=== PATIENT | female | born 1950 | race Caucasian/White ===

== ENCOUNTER → 2017-06-03 | Outpatient (CLI) | payer MEDICARE ==
[~2017-06-03] MED LIST: CELE20TA PO; PRAV20TA2 PO; PROP1TAB29 PO; ZOMI5TAB12
--- NOTE | 2017-06-03 11:58 | REPMRS ---
Patient History The patient states she has not had a clinical breast exam in over a year. Patient is postmenopausal and is nulliparous. Family history of breast cancer in mother at age 87. Digital Woman Screen Mammo: June 03, 2017 - Exam #: [id number] Bilateral CC and MLO view(s) were taken. Technologist: Pily Herrera, Technologist Prior study comparison: June 17, 2016, digital woman screen mammo performed at [facility]. April 23, 2015, digital woman screen mammo performed at [facility] to [facility]. FINDINGS: There are scattered fibroglandular densities. There has been no change in the appearance of the mammogram from the prior studies. There is a mild amount of residual fibroglandular tissue which is fairly symmetric. There is no interval development of dominant mass, architectural distortion, or clustered microcalcification suggestive of malignancy. ASSESSMENT: BI-RADS/ACR category 1 mammogram. Negative. Recommendation Routine screening mammogram in 1 year (for women over age 40). This mammogram was interpreted with the aid of an FDA-approved computer-aided dectection system. Electronically Signed By: Douglas Gillis MD 06/03/17 [id number]
== END ==
LOC: M WHC 10:07
PROVIDERS: ATTEND Nurse Practitioner Adult Health
DX: Z12.31 Encounter for screening mammogram for malignant neoplasm of breast (principal)

== ENCOUNTER 2018-02-18 06:47 | Day surgery (SDC) | payer MEDICARE ==
[2018-02-18] MEDS ORDERED: NS 1,000 ML IV (07:00)
[2018-02-18] MEDS ORDERED: LIDOCAINE 2% INJ 100 MG/5 ML SDV (FOR ANES.) As Ordered (07:06)
[2018-02-18] MEDS ORDERED: PROPOFOL 200 MG/20 ML VIAL As Ordered (07:06)
== END 2018-02-18 09:01 | disposition home or self-care (01) ==
LOC: M OPP 06:47
DX: Z12.11 Encounter for screening for malignant neoplasm of colon (principal); Z86.010 Personal history of colon polyps; K57.30 Diverticulosis of large intestine without perforation or abscess without bleeding; I10 Essential (primary) hypertension; K21.9 Gastro-esophageal reflux disease without esophagitis; F32.9 Major depressive disorder, single episode, unspecified; G43.909 Migraine, unspecified, not intractable, without status migrainosus; Z78.0 Asymptomatic menopausal state; Z92.3 Personal history of irradiation; Z87.2 Personal history of diseases of the skin and subcutaneous tissue; R06.2 Wheezing; Z88.8 Allergy status to other drugs, medicaments and biological substances; Z88.0 Allergy status to penicillin; Z79.899 Other long term (current) drug therapy
CPT/HCPCS: G0105

== ENCOUNTER 2018-04-20 10:26 | Day surgery (SDC) | payer MEDICARE ==
[2018-04-20] MEDS ORDERED: fentaNYL 100 MCG/2 ML INJECTION (J3010) As Ordered (11:31)
[2018-04-20] MEDS ORDERED: dexameTHASONE 4 MG/ML 1ML VIAL (J1100) As Ordered ×2 (11:31→13:51)
[2018-04-20] MEDS ORDERED: MIDAZOLAM INJ 2 MG/2 ML VIAL (J2250) As Ordered (11:31)
[2018-04-20] MEDS ORDERED: PROPOFOL 200 MG/20 ML VIAL As Ordered (11:31)
[2018-04-20] MEDS ORDERED: ROCURONIUM BROMIDE 50 MG/5 ML VIAL As Ordered (11:31)
[2018-04-20] MEDS ORDERED: LIDOCAINE 2% INJ 100 MG/5 ML SDV (FOR ANES.) As Ordered (11:31)
[2018-04-20] MEDS ORDERED: LevoFLOXacin(LEVAQUIN)500 MG/100 ML BAG (J1956) As Ordered (12:21)
[2018-04-20] MEDS: LevoFLOXacin IV 500 MG in APPROPRIATE DILUENT 1 EA IV (13:10)
[2018-04-20] MEDS ORDERED: ePHEDrine SULFATE 25 MG/5 ML(5MG/ML) SYRINGE As Ordered (13:57)
[2018-04-20] MEDS ORDERED: SUGAMMADEX SODIUM 500 MG/5 ML VIAL (BRIDION) As Ordered (14:08)
[2018-04-20] MEDS: BUPIVACAINE/EPIN 0.25% 30 ML VIAL As Ordered (14:15)
[2018-04-20] MEDS ORDERED: PERCOCET 5MG/325MG TAB PO (15:00)
[2018-04-20] MEDS ORDERED: LR 1,000 ML IV ×2 (15:00)
[2018-04-20] MEDS ORDERED: ONDANSETRON 4MG/2ML VIAL (J2405) IV ×2 (15:00)
[2018-04-20] MEDS ORDERED: MORPHINE 10 MG/ML 1ML VIAL (J2270) IV (15:00)
[2018-04-20] MEDS ORDERED: fentaNYL 100 MCG/2 ML INJECTION (J3010) IV (15:00)
[2018-04-20] MEDS ORDERED: MORPHINE 4 MG/ML 1ML VIAL/SYRINGE (J2270) IV (15:00)
[2018-04-20] MEDS ORDERED: NORCO, ANEXSIA 5/325MG TABLET (HYDROcodone/ACETAMINOPHEN) PO (15:00)
[2018-04-20] MEDS ORDERED: PHENYLephrine HCL 500 MCG/5 ML (100MCG/ML) SYRINGE (J2370) As Ordered (15:38)
[2018-04-21] MEDS ORDERED: LIDOCAINE 2% INJ 100 MG/5 ML SDV (FOR ANES.) As Ordered (08:25)
[2018-04-21] MEDS ORDERED: ONDANSETRON 4MG/2ML VIAL (J2405) As Ordered (08:25)
[2018-04-21] MEDS ORDERED: KETOROLAC 60 MG/2 ML VIAL (J1885) As Ordered (08:25)
[2018-04-21] MEDS ORDERED: MIDAZOLAM INJ 2 MG/2 ML VIAL (J2250) As Ordered (08:25)
[2018-04-21] MEDS ORDERED: ROCURONIUM BROMIDE 50 MG/5 ML VIAL As Ordered (08:25)
[2018-04-21] MEDS ORDERED: PROPOFOL 200 MG/20 ML VIAL As Ordered (08:25)
[2018-04-21] MEDS ORDERED: dexameTHASONE 4 MG/ML 1ML VIAL (J1100) As Ordered (08:25)
[2018-04-21] MEDS ORDERED: fentaNYL 250 MCG/5 ML INJECTION (J3010) As Ordered (08:25)
== END 2018-04-20 16:14 | disposition home or self-care (01) ==
LOC: M SDC 10:26
DX: K36 Other appendicitis (principal); I10 Essential (primary) hypertension; K21.9 Gastro-esophageal reflux disease without esophagitis; M12.9 Arthropathy, unspecified; F32.9 Major depressive disorder, single episode, unspecified; G43.909 Migraine, unspecified, not intractable, without status migrainosus; T88.59XD Other complications of anesthesia, subsequent encounter; E66.9 Obesity, unspecified; Z68.37 Body mass index [BMI] 37.0-37.9, adult; Z88.0 Allergy status to penicillin; Z88.4 Allergy status to anesthetic agent; Z79.899 Other long term (current) drug therapy; Z87.81 Personal history of (healed) traumatic fracture; Z92.3 Personal history of irradiation; Z78.0 Asymptomatic menopausal state
CPT/HCPCS: 44970

== ENCOUNTER → 2018-07-28 | Outpatient (CLI) | payer MEDICARE ==
[~2018-07-28] MED LIST changes: +CYCL10TA PO; +HYDR12CA PO; +IPRA6SP; +NEXI20CA PO; -PROP1TAB29 PO; +PROP20TA72 PO; +SYMB16INH INH
--- NOTE | 2018-07-28 13:33 | REPMRS ---
Patient History The patient states she had a clinical breast exam in 11/04 Patient is postmenopausal and is nulliparous. Family history of breast cancer at age 87 in mother. Digital Woman Screen Mammo: July 28, 2018 - Exam #: [id number] Bilateral CC and MLO view(s) were taken. Technologist: Kamila Carter, Technologist Prior study comparison: June 03, 2017, digital woman screen mammo performed at [facility]. June 17, 2016, digital woman screen mammo performed at [facility]. April 23, 2015, digital woman screen mammo performed at [facility]. FINDINGS: There are scattered fibroglandular densities. There is a grouping of coarse stable calcifications in the medial aspect of the left breast on unchanged. These are adjacent to a small nodular opacity which is also unchanged from multiple prior studies. There are normal appearing lymph nodes bilaterally. There has been no change in the appearance of the mammogram from the prior studies. There is a mild amount of scattered fibroglandular density which is fairly symmetric. There is no interval development of dominant mass, architectural distortion, or clustered microcalcification suggestive of malignancy. 3-D tomosynthesis shows no additional findings. Assessment: BI-RADS/ACR category 2 mammogram. Benign finding(s). Recommendation Routine screening mammogram of both breasts in 1 year (for women over age 40). This patient's Lifetime Breast Cancer RIsk is estimated at 16.2 %. This mammogram was interpreted with the aid of an FDA-approved computer-aided dectection system. Electronically Signed By: Av Vasquez MD 07/28/18 0079
== END ==
LOC: M WHC 10:55
PROVIDERS: ATTEND Nurse Practitioner Adult Health
DX: Z12.31 Encounter for screening mammogram for malignant neoplasm of breast (principal)

== ENCOUNTER → 2018-09-02 | Outpatient (CLI) | payer MEDICARE ==
[~2018-09-02] MED LIST changes: +METHACHOLINE KIT (J7674) INH ONE
--- NOTE | 2018-09-02 14:01 | PFTRPT ---
Height: 63.00 Inches Weight: 210.00 Lbs BSA: 1.97 Diagnosis: R06.00 DATE OF PROCEDURE: 09/02/2018 ORDERED BY: DESTINEE Galeano Spirometry: Pre and post bronchodilator study of excellent technical quality. Forced vital capacity reduced. FEV1 in proportion. Obstructive index is, therefore, normal. Flow Volume Loop: Expiratory limb of the flow volume loop does suggest some flow rate limitation. No significant bronchodilator response is identified. IMPRESSION: Suspect some degree of obstructive impairment with air trapping but no bronchodilator response. Please correlate clinically. MTDD
== END ==
LOC: M CARPUL 09:29
PROVIDERS: ATTEND Physician Assistant
DX: R06.00 Dyspnea, unspecified (principal)

== ENCOUNTER 2018-10-18 01:20 | Inpatient (IN) | payer MEDICARE ==
[~2018-10-18] VITALS: Ht 167.6 cm; Wt 99.8 kg
[~2018-10-18 01:20] MED LIST changes: -METHACHOLINE KIT (J7674) INH ONE
--- NOTE | 2018-10-18 01:44 | REPVR ---
EXAM: CT Head Without Contrast EXAM DATE/TIME: 10/18/2018 1:38 AM CLINICAL HISTORY: 68 years old, female; Pain; Headache; Additional info: [place]/ams TECHNIQUE: Imaging protocol: Axial computed tomography images of the head/brain without contrast. STROKE PROTOCOL was implemented. Radiation optimization: All CT scans at this facility use at least one of these dose optimization techniques: automated exposure control; mA and/or kV adjustment per patient size (includes targeted exams where dose is matched to clinical indication); or iterative reconstruction. COMPARISON: No relevant prior studies available. FINDINGS: Brain: Mild prominence of bilateral frontal extra-axial space likely volume loss versus adenoma. No hemorrhage. No significant white matter disease. No edema. Ventricles: Asymmetry of the ventricles, right larger than left, normal variant. No ventriculomegaly. Bones/joints: Unremarkable. No acute fracture. Sinuses: Mild mucosal thickening of right maxillary sinus and moderate mucosal thickening of the left maxillary sinus. Mild mucosal thickening of bilateral maxillary sinuses. Small mucous retention cyst in left sphenoid sinus.. No acute sinusitis. Mastoid air cells: Visualized mastoid air cells are unremarkable. No mastoid effusion. Soft tissues: Unremarkable. IMPRESSION: No acute intracranial abnormality. Mild volume loss. Moderate sinus disease. ASSESSMENT: ASPECTS ([place] Stroke Program Early CT Score) is 10. Electronically signed by: Qiana Hernández On 10/18/2018 01:43:21 AM
[2018-10-18] MEDS ORDERED: LIDOCAINE 2% 5ML JELLY UROJET TOP ONE (02:00)
[2018-10-18 02:09] LABS: ABG BASE EXCESS 0.1 (-2.0-2.0); ABG O2 SATURATION 96.6 % (95.0-99.0); ABG PARTIAL PRESSURE CO2 28.3 mmHg (35.0-45.0); ABG PARTIAL PRESSURE O2 79.5 mmHg (75.0-100.0); ABG STANDARD HCO3 24.5 MEQ/L (22.0-26.0); ABG TOTAL CO2 22.8 MEQ/L (23.0-31.0); ABG pH (ARTERIAL) 7.508 UNITS (7.350-7.450)
[2018-10-18] MEDS ORDERED: PROPOFOL 200 MG/20 ML VIAL As Ordered ONE (02:29)
[2018-10-18 02:35] LABS: BASO # 0.1 10^3/uL (0.0-0.2); BASO % 0.5 % (0.0-1.0); EOS # 0.1 10^3/uL (0.0-0.50); EOS % 0.8 % (0.0-3.0); HEMATOCRIT 36.8 % (36.0-47.0); HEMOGLOBIN 12.6 g/dl (12.0-15.5); LYMPH # 1.8 10^3/uL (1.5-4.5); LYMPH % 12.4 % (24.0-44.0); MEAN CORPUSCULAR HEMOGLOBIN 29.9 pg (27.0-33.0); MEAN CORPUSCULAR HGB CONC 34.2 g/dl (32.0-36.5); MEAN CORPUSCULAR VOLUME 87.4 fl (80.0-96.0); MONO # 0.7 10^3/uL (0.0-0.8); MONO % 5.2 % (0.0-5.0); NEUTROPHILS # 11.4 10^3/uL (1.8-7.7); NEUTROPHILS % 80.7 % (36.0-66.0); PLATELET COUNT, AUTOMATED 375 10^3/uL (150-450); RED BLOOD COUNT 4.21 10^6/uL (4.00-5.40); WHITE BLOOD COUNT 14.2 10^3/uL (4.0-10.0)
[2018-10-18 02:54] LABS: AMPHETAMINES LEVEL URINE NEGATIVE (NEGATIVE); BARBITURATES URINE NEGATIVE (NEGATIVE); BENZODIAZEPINES URINE NEGATIVE (NEGATIVE); CANNABINOIDS URINE NEGATIVE (NEGATIVE); COCAINE METABOLITE URINE NEGATIVE (NEGATIVE); METHADONE URINE NEGATIVE (NEGATIVE); OPIATES URINE NEGATIVE (NEGATIVE); PHENCYCLIDINE URINE NEGATIVE (NEGATIVE)
[2018-10-18 02:55] LABS: APPEARANCE, URINE HAZY (CLEAR); BACTERIA, URINE AUTO NEGATIVE (NEGATIVE); BILIRUBIN, URINE AUTO NEGATIVE (NEGATIVE); BLOOD, URINE BLOOD NEGATIVE (NEGATIVE); COLOR, URINE YELLOW (YELLOW); GLUCOSE, URINE (UA) AUTO NEGATIVE (NEGATIVE); KETONE, URINE AUTO TRACE mg/dL (NEGATIVE); LEUKOCYTE ESTERASE, URINE AUTO NEGATIVE (NEGATIVE); MUCUS, URINE SMALL (NEGATIVE); NITRITE, URINE AUTO NEGATIVE (NEGATIVE); PROTEIN, URINE AUTO NEGATIVE (NEGATIVE); RBC, URINE AUTO 2 /HPF (0-3); SPECIFIC GRAVITY URINE AUTO 1.019 (1.002-1.035); SQUAMOUS EPITHELIAL CELL UR AU 0 /HPF (0-6); UROBILINOGEN, URINE AUTO 0.2 mg/dL (0.0-2.0); WBC, URINE AUTO 1 /HPF (0-3)
[2018-10-18] MEDS ORDERED: PROPOFOL 200 MG/20 ML VIAL IV ONE (03:00)
[2018-10-18 03:07] LABS: APPEARANCE, CSF HAZY (CLEAR); COLOR, CSF PINK (COLORLESS)
[2018-10-18 03:08] LABS: APPEARANCE, CSF CLEAR (CLEAR); COLOR, CSF COLORLESS (COLORLESS); CSF TUBE# CELL CNT TUBE 1
[2018-10-18 03:09] LABS: CSF TUBE# CELL CNT TUBE 4
[2018-10-18] MEDS ORDERED: MORPHINE 2 MG/ML 1ML SYRINGE (J2270) IV ONE (03:15)
[2018-10-18] MEDS ORDERED: NS 1,000 ML IV ONE (03:15)
[2018-10-18] MEDS ORDERED: cefTRIAXone SOD 2 GM in D5W MINI-BAG PLUS 50 ML IV ONE (03:15)
[2018-10-18] MEDS ORDERED: VANCOMYCIN HCL 1,000 MG, VIAL MATE ADAPTER 1 EACH in D5W 250 ML IV ONE (03:15)
[2018-10-18] MEDS ORDERED: ACYCLOVIR 1,000 MG in D5W 250 ML IV ONE (03:15)
[2018-10-18 03:19] LABS: ACETAMINOPHEN LEVEL < 2.0 UG/ML (10.0-30.0); ALBUMIN 4.1 GM/DL (3.2-5.2); ALT/SGPT 45 U/L (12-78); BILIRUBIN,DIRECT 0.2 MG/DL (0.0-0.2); BILIRUBIN,TOTAL 0.9 MG/DL (0.2-1.0); BLOOD UREA NITROGEN 17 MG/DL (7-18); CALCIUM LEVEL 9.4 MG/DL (8.8-10.2); CARBON DIOXIDE LEVEL 23 MEQ/L (21-32); CHLORIDE LEVEL 108 MEQ/L (98-107); CPK CREATINE PHOSPHOKINASE 70 U/L (26-192); ETHYL ALCOHOL (ETHANOL) < 0.003 % (0.000-0.010); FREE THYROXINE INDEX 3.6 % (1.3-4.8); GLOMERULAR FILTRATION RATE > 60.0 (>45); GLUCOSE, FASTING 131 MG/DL (70-100); POTASSIUM SERUM 3.8 MEQ/L (3.5-5.1); SALICYLATE LEVEL < 1.7 MG/DL (5.0-30.0); SODIUM LEVEL 142 MEQ/L (136-145); T UPTAKE 34 % (30-39); THYROXINE (T4) 10.6 UG/DL (4.5-12.0); TOTAL PROTEIN 7.4 GM/DL (6.4-8.2); TROPONIN I < 0.02 NG/ML (< 0.10)
[2018-10-18 03:28] LABS: CSF TUBE# GLU TUBE 2; CSF TUBE# TP TUBE 4; GLUCOSE CSF 58 MG/DL (40-75); TOTAL PROTEIN,CSF 35 MG/DL (15-45)
[2018-10-18] MEDS ORDERED: PANT40TA3 PO (03:32)
[2018-10-18] MEDS ORDERED: PATIENT COMMENTS (03:34)
[2018-10-18] MEDS: NS 1,000 ML IV SCH ×4 (03:41→23:30)
[2018-10-18] MEDS ORDERED: SYMB80INH INH (03:43)
[2018-10-18] MEDS ORDERED: IPRATROPIUM 0.5MG/ALBUTEROL 2.5MG INH SOL UD 3ML (DUONEB)(J7620) NEB PRN (03:45)
[2018-10-18] MEDS ORDERED: dexameTHASONE 20 MG/5 ML VIAL (J1100) IV ONE (03:45)
[2018-10-18 03:56] LABS: C REACTIVE PROTEIN QUANTITATIV < 0.30 MG/DL (0.00-0.30)
--- NOTE | 2018-10-18 05:25 | PHACANCOPD ---
PHARMACY VANCOMYCIN DOSING Pt Demographics Demographics Patient Age:68 , Weight:97.900 , Gender: female Adjusted Body Weight Date: 10/18/18, Adjusted Body Weight: Kg Events Past 24 Hours Events Past 24 Hours: NO: Dialysis, Diuretic Therapy, Change in CrCl, Fever, Elevation in WBC, Pending Diagnostics, Pending Procedures, Other Vancomycin Vancomycin Target Ranges: 15-20 mcg/ml Vancomycin Load Y/N: Yes Load Dose Date Time Vancomycin Load Dose: 1000mg - 1000mg Date: 10/18 Time: 329 - 899 Vancomycin Dose Date: 10/18/18. Current Vancomycin Dose: [1000mg q8h] Intermittent Dosing?: No Labs Labs Item Value Date Time White Blood Count 14.2 10^3/uL H 10/18/18225 Glomerular Filtration Rate > 60.0 10/18/18225 Creatinine 0.80 MG/DL 10/18/18225 Blood Urea Nitrogen 17 MG/DL 10/18/18 0226 Vital Signs Label Value Date Time Patient Temperature 98.2 degrees F 10/18/18 0155 Temperature Source Rectal 10/18/18 0155 Micro Microbiology 10/18/18 Blood Culture, Received Pending 10/18/18 Gram Stain - Preliminary, Resulted 10/18/18 CSF Culture, Resulted Pending 10/18/18 - Final, Resulted 10/18/18 Urine Culture, Received Pending Creatinine Clearance Date:10/18/18. Creatinine Clearance: [68]. Pending Labs Trough 04-01@1600 Assessment and Plan Maintaining Current Dose?: Yes Reason for dose change: No Dose Change Pharmacist Note Pharmacist Note Date: 10/18/18. Pharmacist note:Will monitor and make adjustments as needed. ISMAEL GARCES PHARMACY Oct 18, 2018 05:25
[2018-10-18] MEDS: HEPARIN SOD (PORCINE) 5000 UNITS/ML VIAL SC SCH ×3 (05:45→21:05)
[2018-10-18 05:48] VITALS: BP 145/80
[2018-10-18] MEDS ORDERED: MEROPENEM INJ 1 GM in APPROPRIATE DILUENT 1 EA IV SCH (06:00)
[2018-10-18] MEDS: SYMBICORT 80/4.5MCG INHALER 6GM INH SCH ×2 (07:40→20:17)
--- NOTE | 2018-10-18 08:03 | REP ---
Portable chest x-ray: Single view. History: Admission. Comparison chest x-ray: December 27, 2017. Findings: EKG monitoring electrodes overlie the chest. Lungs are well inflated and clear. Pleural angles are sharp. Cardiomediastinal silhouette and bony thorax are unremarkable. Impression: No active disease. Electronically Signed by Fahad Vasquez MD 10/18/2018 07:54 A
[2018-10-18 08:07] VITALS: BP 125/69
[2018-10-18] MEDS: PANTOPRAZOLE 40MG TAB (PROTONIX) PO SCH (08:25)
--- NOTE | 2018-10-18 08:43 | HPE ---
DATE OF ADMISSION: 10/18/2018 CHIEF COMPLAINT: Headache and altered mental status. HISTORY OF PRESENT ILLNESS: The patient is a 68-year-old female with significant past medical history of depression, anxiety, GERD, hypertension, asthma, COPD. She presented to the emergency room after her called 911. Throughout the course of the day yesterday the patient complained of a headache which progressively worsened and subsequently became altered towards the end of the day. The patient does not offer any history. She appears to have a brokers aphasia. The words she states is nonsensical even writing she is unable to write appropriately. states that she had no acute complaints but the history is limited just because of the patient's inability to have a cohesive conservation. PAST MEDICAL HISTORY: See history of present illness. PAST SURGICAL HISTORY: None. ALLERGIES: Penicillin, reaction is unknown. HOME MEDICATIONS: Hydrochlorothiazide, pantoprazole, pravastatin, propranolol, Symbicort, Celexa, Zomig. SOCIAL HISTORY: Denies tobacco, alcohol, or illicit drug use. FAMILY HISTORY: Noncontributory. REVIEW OF SYSTEMS: Unable to complete because of underlying mentation. VITALS ON ADMISSION: Temperature 98.2, pulse 77, respirations 22, blood pressure 131/61, sating at 100% on room air. PHYSICAL EXAM: GENERAL: She is well nourished, in no apparent distress. Head is normocephalic atraumatic. Eyes, pupils equal, round and reactive to light. Neck supple with no jugular venous pulse. Lungs clear to auscultation on the anterior chest. Cardiovascular regular and rhythm. Normal S1, S2. No murmurs, gallops or rubs. Abdomen soft and positive bowel sounds. Extremities no edema. Neurological, she is alert. She has no focal deficits. Moves all four extremities. Sensation is intact. However she is not oriented and appears to have brokers aphasia. LABS AND IMAGING DONE IN THE ER: White count 14, hemoglobin and hematocrit 12 and 36, platelets 375, blood gas 7.5, 28 79 22 96, Chemistry shows a BUN and creatinine of 17 over 0.8, Lactate 2.6, ammonia unremarkable, liver function test unremarkable. TSH within normal limits. CRP is pending. CT head no acute intracranial abnormality. X-ray of the chest no acute pathology. UA is unremarkable. U-tox is unremarkable. Tylenol and blood alcohol levels unremarkable. CSF first model shows 23 WBC predominately poly, 5 red blood cell. Model #4 shows 7 WBC's, less than 2 red blood cells. She has some glucose still pending. CULTURES: Pending. Gram stain is pending. ASSESSMENT AND PLAN: 1. Metabolic encephalomyopathy unclear, possibly meningitis even though I believe versus rule out CVA versus substance induced versus underlying psychiatric disorder which is very less likely. We will treat with Vanco and Meropenem, acyclovir. We will aggressively hydrate while on Acyclovir. We will give Decadron 10 mg IV once. We will keep on droplet precautions for 24 hours and after 24 hours droplet precaution can be discontinued. Neuro checks, MRI, echo, ultrasound, carotid Doppler, stroke workup. We will keep the patient on tele. Please obtain infectious consultation in the morning. The rest of her chronic medical conditions: 2. Hypertension. Continue hydrochlorothiazide. 3. Hyperlipidemia. Continue Pravastatin. 4. GERD. Continue Pantoprazole, propranolol. 5. COPD/asthma. Continue DuoNebs. 6. Supportive DVT prophylaxis. Heparin subcu. 7. GI prophylaxis. The patient is already on PPI. DIET: Nothing by mouth for now. We will do swallow evaluation.
[2018-10-18] MEDS: ACYCLOVIR 1,000 MG in D5W 250 ML IV SCH ×2 (08:54→15:49)
[2018-10-18] MEDS ORDERED: PROPRANOLOL 20 MG TAB PO SCH (09:00)
[2018-10-18] MEDS ORDERED: PANTOPRAZOLE 40MG TAB (PROTONIX) PO SCH (09:00)
[2018-10-18] MEDS ORDERED: hydroCHLOROthiazide 12.5 MG CAPSULE PO SCH (09:00)
[2018-10-18] MEDS ORDERED: VANCOMYCIN HCL 1,000 MG, VIAL MATE ADAPTER 1 EACH in D5W 250 ML IV SCH (09:00)
[2018-10-18] MEDS: ACETAMINOPHEN 500 MG TAB PO PRN (09:48)
[2018-10-18] MEDS ORDERED: ASPIRIN 81 MG CHEW TABLET PO ONE (11:30)
--- NOTE | 2018-10-18 11:51 | REP ---
MR BRAIN WITHOUT CONTRAST: HISTORY: Altered mental status. COMPARISON: CT 10/18/2018. Several punctate areas of increased signal intensity on T2-weighted images are present in the periventricular and subcortical white matter. This represents small vessel ischemic disease. There is no intraparenchymal hemorrhage, infarct, mass, or midline shift. The ventricular system and cortical sulci are dilated consistent with minimal volume loss. There is no extracerebral collection. The sinuses are clear. IMPRESSION: 1. Minimal small vessel ischemic disease. 2. Minimal volume loss. Electronically Signed by Stiven Gómez MD 10/18/2018 11:53 A
[2018-10-18 12:34] VITALS: BP 107/67
--- NOTE | 2018-10-18 12:47 | REP ---
DUPLEX CAROTID SONOGRAPHY: HISTORY: Altered mental status. FINDINGS: Antegrade flow was observed in both vertebral arteries. RIGHT CAROTID: The right common carotid artery is unremarkable. There is mild soft plaquing in the bulb and proximal ICA on the right side on two-dimensional scanning. Color flow and spectral Doppler interrogation are unremarkable on the right. Velocity Chart Right Carotid: PSV EDV Right CCA 83 cm/s Right ICA 50 cm/s 12 cm/s Right ECA 68 cm/s Right ICA/CCA ratio normal 0.61 IMPRESSION: The 15% category narrowing in the right ICA by Doppler velocity criteria. LEFT CAROTID: Left common carotid artery is unremarkable on two-dimensional scanning. There is mild soft plaquing in the bulb and proximal ICA. Color flow and spectral Doppler interrogation are unremarkable on the left. Velocity Chart Left Carotid: PSV EDV Left CCA 131 cm/s Left ICA 59 cm/s 20 cm/s Left ECA 79 cm/s Left ICA/CCA ratio normal 0.5. IMPRESSION: 0-15% category narrowing in the left ICA by Doppler velocity criteria. Electronically Signed by Fahad Vasquez MD 10/18/2018 01:08 P
[2018-10-18] MEDS ORDERED: LORazepam 2 MG/ML VIAL (J2060) IV ONE (14:15)
--- NOTE | 2018-10-18 14:37 | NUR ---
Pt presents with mild oropharyngeal phase dysphagia as characterized by effortful swallow and dry mouth. Recommend: Level 2 solids and regular thin liquids. Upright for all meals/snacks/med passes. Meds crushed in applesauce. Addendum: 10/18/18 at 1439 by LINDA DE LOS SANTOS [facility] Amended: Links added.
[2018-10-18 15:39] VITALS: BP 105/60
--- NOTE | 2018-10-18 15:45 | NUR ---
Pt presents with moderate deficit in comprehension of language and a severe deficit in expression of language. Pt. has a difficult time discerning from many pictorial items on a communication/picture board. Selections should be limited. Please limit questions to yes/no. Provide Pt with choices from a field of 2. Open ended questions are not appropriate at this time. Addendum: 10/18/18 at 1547 by LINDA DUKES [facility] Amended: Links added.
[2018-10-18] MEDS ORDERED: PROPRANOLOL 20 MG TAB PO ONE (17:45)
[2018-10-18 17:49] VITALS: BP 109/57
[2018-10-18] MEDS ORDERED: SUMAtriptan SUCCINATE 6 MG/0.5 ML VIAL SC ONE (18:00)
[2018-10-18] MEDS ORDERED: MAG SULF 1GM/100ML (MAG RUN) 1 GM in APPROPRIATE DILUENT 1 EA IV ONE (18:30)
[2018-10-18] MEDS: VALPROATE SOD INJ 500 MG in D5W 50 ML IV SCH ×2 (19:51→20:00)
[2018-10-18 20:00] VITALS: BP 107/60
[2018-10-18] MEDS: PROPRANOLOL 20 MG TAB PO SCH (20:12)
[2018-10-18] MEDS: PRAVASTATIN 20 MG TAB PO SCH (20:12)
--- NOTE | 2018-10-18 20:25 | REPVR ---
EXAM: MR Angiogram Head Without Contrast, Arteries EXAM DATE/TIME: 10/18/2018 7:33 PM CLINICAL HISTORY: 68 years old, female; Signs and symptoms; Speech disturbance and weakness; Aphasia; Additional info: Stroke TECHNIQUE: Imaging protocol: MR angiogram head without contrast. Exam focused on the arteries. COMPARISON: MRI-Brain without Contrast 10/18/2018 10:53 AM FINDINGS: Right internal carotid artery: Mild luminal irregularity in the right intracranial carotid artery consistent with mild atherosclerosis. Right anterior cerebral artery: Unremarkable. No occlusion or significant stenosis. No aneurysm. Right middle cerebral artery: Unremarkable. No occlusion or significant stenosis. No aneurysm. Right posterior cerebral artery: Unremarkable. No occlusion or significant stenosis. No aneurysm. Right vertebral artery: Unremarkable. No occlusion or significant stenosis. No aneurysm. Left internal carotid artery: Mild luminal irregularity in the left intracranial carotid artery consistent mild atherosclerosis. Left anterior cerebral artery: Unremarkable. No occlusion or significant stenosis. No aneurysm. Left middle cerebral artery: Unremarkable. No occlusion or significant stenosis. No aneurysm. Left posterior cerebral artery: Unremarkable. No occlusion or significant stenosis. No aneurysm. Left vertebral artery: Unremarkable. No occlusion or significant stenosis. No aneurysm. Basilar artery: Tortuous basilar artery. IMPRESSION: 1. Mild luminal irregularity in the right intracranial carotid artery consistent with mild atherosclerosis. 2. Mild luminal irregularity in the left intracranial carotid artery consistent mild atherosclerosis. Electronically signed by: Silvio Camacho On 10/18/2018 20:24:32 PM
--- NOTE | 2018-10-18 22:28 | ECHO ---
DATE OF PROCEDURE: 10/18/2018 REFERRING PHYSICIAN: Dr. Arnold Thursday INDICATION: Acute stroke. HEIGHT: 162 cm. WEIGHT: 98 kg. 2D MEASUREMENTS: Aortic root: 3.5 cm Left atrium: 4.2 cm Ventricular septum: 0.98 cm Posterior wall: 0.99 cm Left ventricle diastole: 3.9 cm Aortic annulus: 2.0 cm DOPPLER MEASUREMENTS: Aortic valve velocity: 149 cm/s LVOT velocity: 128 cm/s LVOT VTI: 17.9 cm Mitral E velocity: 105 cm/s Mitral A velocity: 53.4 cm/s Mitral deceleration time: 134 ms Pulmonary artery systolic pressure: 22 mmHg. MITRAL ANNULAR TISSUE DOPPLER: E prime septal: 18.3 cm/s E prime lateral: 17.7 cm/s DESCRIPTION: Rhythm was sinus. Image quality was adequate. No pericardial effusion. This was a 2D, M-mode, color flow Doppler and pulse wave Doppler examination and included mitral annular tissue Doppler. CONCLUSIONS: 1. Normal left ventricle internal dimensions and wall thickness. Normal regional left ventricular (LV) wall motion and wall thickening. Normal LV systolic function. Left ventricular ejection fraction (LVEF) 70% by visual estimate. Normal LV diastolic function. 2. Mild left atrial dilatation. 3. Very mild aortic valve sclerosis of a 3-cusp aortic valve. No aortic regurgitation. 4. Otherwise normal appearing echocardiogram Doppler findings.
--- NOTE | 2018-10-18 23:00 | CR.PDOC ---
General Date of Consultation: Oct 18, 2018 Consultation REASON FOR CONSULTATION: Encephalopathy HISTORY OF PRESENT ILLNESS: Ms. Rios is a 68 y/o female who presented to the ED one day ago with her when it was found she was having difficulty communicating effectively and also was suffering with a headache. She recalls going to shinto day prior to admission then had a headache, right sided but no fever or chills The patient was found to be encephalopathic in the emergency department. Infectious disease was consulted to help rule out a possible infectious etiology to the new onset of encephalopathy. ALLERGIES: Please see below. HOME MEDICATIONS: Please see below. PAST MEDICAL HISTORY: 1. History of migraines 2. Depression 3. Anxiety 4. GERD 5. Hypertension 6. Asthma 7. COPD PAST SURGICAL HISTORY: None SOCIAL HISTORY: no drug use or alcohol use REVIEW OF SYSTEMS: Note , this was difficult to obtain due to patients aphasia. CONSTITUTIONAL: No recent weight changes, no fevers recently HEENT: blurry vision b/l, admits to headache concentrated around and behind right eye that is light sensitive CARDIOVASCULAR: no chest pain RESPIRATORY: no difficulty breathing GASTROINTESTINAL: no diarrhea SKIN: no new rashes or new joint pains, admits to chronic arthritis of the hands NEUROLOGICAL: patient demonstrates expressive aphasia PHYSICAL EXAMINATION: VITAL SIGNS: Please see below. GENERAL APPEARANCE: AAOx3 although has difficulty expressing this, appears well but concerned, comfortable in bed HEENT: EOMI, nates patent b/l, moist mucus membranes RESPIRATORY: CTA b/l, no rales/rhonchi or wheezing appreciated CARDIOVASCULAR: normal s1 and s2., no murmurs, rubs or gallops ABDOMEN: soft, obese, nabsx4, no distension, no pain to palpation, no rebound ridgity or guarding EXTREMITIES: no rashes appreciated, no joint pain or swelling, no edema, cyanosis or mottling NEUROLOGICAL: CN II-VII intact, patient demonstrates expressive aphasia on exam , strength and sensation remain intact for b/l Upper and lower extremities PSYCHIATRIC: affect seems appropriate given current situation LABORATORY DATA: Please see below. ASSESSMENT/PLAN: 1. Acute onset Encephalopathy with expressive aphasia and headaches similar to her migraines The patient was noted to have a minimally elevated WBC and has remained afebrile this admission. She has undergone head CT and MRI both of which were essentially unremarkable for a cause to her presentation. She also had a spinal tap with CSF cell counts that demonstrated an elevated WBC of 23 on the first tube with a hazy/pink color suggesting a possible traumatic tap, however subsequent tubes did not reveal an elevation in the WBC and were a clear color. We did check with the lab who again verified these results. However, interestingly her CSF cu ltures did not grow bacteria and PCR was negative for viral etiology. Perhaps the first CSF sample tube had an elevated WBC due to complication from a traumatic entry into the CSF angelo-spinal space. In any event, do not strongly suspect there is an infectious cause to her symptoms, it is likely this could represent a complex migrane and aphasia as a result. Agree with Neurology consult and EEG, but less likely seizure induced. We will recommend to give the patient sumatriptan to help abort her current headache and see if this improves her current condition and communication deficits. Agree with MRA, if this is revealing could suggest vasculitic work up for cause of her symptoms. Agree with EEG and Neurology consult. Of note her CRP was negative. We have stopped her acyclovir as her PCR CSF was negative for Herpetic involvement. She did receive Vancomycin, a dose of Ceftriaxone and Meropenem along with Decadron. Blood and urine cultures are pending still. 2. Chronic headaches -Patient is on medication at home Zomig for her migranes, suggest to give sumatriptan to abort her current headache on exam today and see if this helps to improve her current condition and symptoms. Vital Signs/I&O Vital Signs Date Time Temp Pulse Resp B/P (MAP) Pulse Ox O2 Delivery O2 Flow Rate FiO2 10/18/18 20:12 93 140/67 10/18/18 20:00 98.0 18 93 2.0 10/18/18 01:31 Room Air I&O- Last 24 Hours up to 6 AM 10/18/18 06:00 Intake Total 1720 ml Output Total 350 ml Balance 1370 ml Laboratory Data Labs 24H Laboratory Tests 2 10/18/18 01:43: Bedside Glucose (Misc Panel) 102 10/18/18 01:49: Blood Gas Bicarbonate Standard 24.5, Arterial Blood pH 7.508H, Arterial Blood Partial Pressure CO2 28.3L, Arterial Blood Partial Pressure O2 79.5, Arterial Blood Total CO2 22.8L, Arterial Blood HCO3 22.0, Arterial Blood Base Excess 0.1, Arterial Blood Oxygen Saturation 96.6 10/18/18 02:20: Urine Amphetamines Screen NEGATIVE, Urine Benzodiazepines Screen NEGATIVE, Urine Opiates Screen NEGATIVE, Urine Methadone Screen NEGATIVE, Urine Barbiturates Screen NEGATIVE, Urine Phencyclidine Screen NEGATIVE, Urine Cocaine Metabolite Screen NEGATIVE, Urine Cannabinoids Screen NEGATIVE 10/18/18 02:21: Urine Appearance HAZY, Urine Color YELLOW, Urine pH 8.0, Urine Specific [place] 1.019, Urine Protein NEGATIVE, Urine Glucose (UA) NEGATIVE, Urine Ketones TRACEH, Urine Urobilinogen 0.2, Urine Bilirubin NEGATIVE, Urine Leukocyte Esterase NEGATIVE, Urine Blood NEGATIVE, Urine Nitrite NEGATIVE, Urine WBC (Auto) 1, Urine RBC (Auto) 2, Urine Hyaline Casts (Auto) 0, Urine Bacteria (Auto) NEGATIVE, Urine Squamous Epithelial Cells 0, Urine Mucus (Auto) SMALL, Urine Sperm (Auto) 10/18/18 02:26: Immature Granulocyte % (Auto) 0.4, White Blood Count 14.2H, Red Blood Count 4.21, Hemoglobin 12.6, Hematocrit 36.8, Mean Corpuscular Volume 87.4, Mean Corpuscular Hemoglobin 29.9, Mean Corpuscular Hemoglobin Concent 34.2, Red Cell Distribution Width 12.7, Platelet Count 375, Neutrophils (%) (Auto) 80.7H, Lymphocytes (%) (Auto) 12.4L, Monocytes (%) (Auto) 5.2H, Eosinophils (%) (Auto) 0.8, Basophils (%) (Auto) 0.5, Neutrophils # (Auto) 11.4H, Lymphocytes # (Auto) 1.8, Monocytes # (Auto) 0.7, Eosinophils # (Auto) 0.1, Basophils # (Auto) 0.1, Nucleated Red Blood Cells % (auto) 0.0, Anion Gap 11, Glomerular Filtration Rate > 60.0, Lactic Acid Level 2.6*H, Calcium Level 9.4, Aspartate Amino Transf (AST/SGOT) 27, Alanine Aminotransferase (ALT/SGPT) 45, Alkaline Phosphatase 53, Total Bilirubin 0.9, Direct Bilirubin 0.2, Ammonia 11, Total Creatine Kinase 70, Troponin I < 0.02, C-Reactive Protein, Quantitative < 0.30, Total Protein 7.4, Albumin 4.1, Albumin/Globulin Ratio 1.24, Thyroid Stimulating Hormone (TSH) 3.070, Free Thyroxine Index 3.6, Thyroxine (T4) 10.6, Triiodothyronine (T3) Uptake 34, Salicylates Level < 1.7L, Acetaminophen Level < 2.0L, Ethyl Alcohol Level < 0.003 10/18/18 02:51: CSF Appearance HAZYH, CSF Color PINKH, CSF WBC (Auto) 23H, CSF RBC (Auto) 5, CSF Glucose (Tube 1) TUBE 2, CSF Total Protein (Tube 1) TUBE 4, CSF Cell Count Tube # TUBE 1, CSF Mononuclear Cells % (Auto) 30.4H, CSF Polynuclear WBCs (%) 69.6H, CSF Glucose 58, CSF Total Protein 35 10/18/18 06:56: Lactic Acid Followup at 4 Hours 2.1*H CBC/BMP Laboratory Tests 10/18/18 02:26 Red Blood Count 4.21, Mean Corpuscular Volume 87.4, Mean Corpuscular Hemoglobin 29.9, Mean Corpuscular Hemoglobin Concent 34.2, Red Cell Distribution Width 12.7, Neutrophils (%) (Auto) 80.7 H, Lymphocytes (%) (Auto) 12.4 L, Monocytes (%) (Auto) 5.2 H, Eosinophils (%) (Auto) 0.8, Basophils (%) (Auto) 0.5, Neutrophils # (Auto) 11.4 H, Lymphocytes # (Auto) 1.8, Monocytes # (Auto) 0.7, Eosinophils # (Auto) 0.1, Basophils # (Auto) 0.1 Microbiology Microbiology 10/18/18 Blood Culture, Received Pending 10/18/18 Gram Stain - Final, Resulted 10/18/18 CSF Culture, Resulted Pending 10/18/18 - Final, Resulted 10/18/18 Urine Culture, Received Pending Allergies Coded Allergies: Penicillins (Verified Allergy, Unknown, 10/18/18) ether (Verified Allergy, Unknown, 10/18/18) Home Medications Scheduled Citalopram Hydrobromide (Celexa) 20 Mg Tab, 20 MG PO DAILY, (Reported) Divalproex Sodium (Depakote) 250 Mg Tab, 250 MG PO BID for 30 Days, #60 Hydrochlorothiazide (Hydrochlorothiazide) 12.5 Mg Cap, 12.5 MG PO DAILY, (Reported) Pantoprazole Sodium (Pantoprazole Sodium) 40 Mg Tab, 40 MG PO DAILY, (Reported) Pravastatin Sodium (Pravastatin Sodium) 20 Mg Tab, 40 MG PO QHS, (Reported) Propranolol HCl (Propranolol HCl) 20 Mg Tab, 20 MG PO TID, (Reported) Scheduled PRN Budesonide/Formoterol (Symbicort 80-4.5 Mcg/Act) 60 Puff/Inhaler Aers, 1 PUFF INH BID PRN for SOB/WHEEZING, (Reported) Zolmitriptan (Zomig) 5 Mg Tab, 5 MG PRN PRN for MIGRAINE, (Reported) Miscellaneous Medications [Patient Comments] , (Reported) UNABLE TO DETERMINE IF PATIENT TOOK ANY MEDICATIONS TODAY OR WHEN THEY WERE LAST TAKEN. PERSON WITH HER HAD MEDICATION BOTTLES AND SAID SHE USUALLY TAKES HER MEDICATIONS PRESCRIBED GME ATTESTATION GME ATTESTATION My faculty preceptor for this patient encounter was physically present during the encounter and was fully available. All aspects of the patient interview, examination, medical decision making process, and medical care plan development were reviewed and approved by the faculty preceptor. The faculty preceptor is aware and concurs with the plan as stated in the body of this note and will attest to such by his/her cosignature. WOODY DE PAZ DO Oct 18, 2018 23:00 Joaquín Graham MD Oct 19, 2018 15:13
[2018-10-19] VITALS (7 sets, daily range): BP systolic 121–139; BP diastolic 57–82
[2018-10-19] MEDS: NS 1,000 ML IV SCH ×2 (03:51→11:40)
[2018-10-19] MEDS: HEPARIN SOD (PORCINE) 5000 UNITS/ML VIAL SC SCH ×3 (05:13→20:32)
[2018-10-19 05:56] LABS: HEMATOCRIT 31.3 % (36.0-47.0); MEAN CORPUSCULAR HEMOGLOBIN 29.9 pg (27.0-33.0); MEAN CORPUSCULAR HGB CONC 32.9 g/dl (32.0-36.5); PLATELET COUNT, AUTOMATED 312 10^3/uL (150-450); RED BLOOD COUNT 3.44 10^6/uL (4.00-5.40); WHITE BLOOD COUNT 12.8 10^3/uL (4.0-10.0)
[2018-10-19 06:06] LABS: HEMOGLOBIN 10.3 g/dl (12.0-15.5)
[2018-10-19 06:12] LABS: BLOOD UREA NITROGEN 11 MG/DL (7-18); CALCIUM LEVEL 8.2 MG/DL (8.8-10.2); CARBON DIOXIDE LEVEL 26 MEQ/L (21-32); CHLORIDE LEVEL 113 MEQ/L (98-107); CREATININE FOR GFR 0.63 MG/DL (0.55-1.30); GLOMERULAR FILTRATION RATE > 60.0 (>45); GLUCOSE, FASTING 108 MG/DL (70-100); POTASSIUM SERUM 3.5 MEQ/L (3.5-5.1); SODIUM LEVEL 145 MEQ/L (136-145)
[2018-10-19] MEDS: SYMBICORT 80/4.5MCG INHALER 6GM INH SCH ×2 (08:08→20:08)
--- NOTE | 2018-10-19 08:44 | CR ---
DATE OF CONSULTATION: 10/18/2018 REFERRING PROVIDER: Dr. Iram Hood REASON FOR CONSULTATION: Altered mental status and aphasia. HISTORY OF PRESENTING ILLNESS: Kamila Ellis is a 68-year-old female with past medical history significant for hypertension, chronic obstructive pulmonary disease (COPD), and history of migraine headaches with aura. The patient presents with a severe headache, which occurred the evening before. The patient states that the headache started in the morning, progressed through the entire day and became extremely bad towards the end of the day. By the end of the headache, the patient was unable to speak clearly. She was confused. The patient has been admitted to the hospital. A spinal tap was shown to be within normal limits when analyzing the fourth spinal fluid collection tube. The patient also had a negative MRI of the brain suggesting there was no stroke. The patient likely is suffering with complications from her migraine. Her language function seems to be today improving since she has received Imitrex. The patient has been asked to receive intravenous (IV) Depacon 1 gram and magnesium sulfate 1 gram if her headache persist and her language dysfunction persists. The patient is on propranolol as a preventative therapy. She may benefit by remaining on Depakote as an outpatient therapy for her migraine prevention with close monitoring of liver function tests (LFTs). The patient complains of inability to read, inability to recognize words. This has improved tremendously. PAST MEDICAL HISTORY: 1. Depression. 2. Anxiety. 3. Migraine headaches with aura. 4. Gastroesophageal reflux disease., 5. Hypertension. 6. Asthma. 7. COPD. 8. History of migraine headaches with speech dysfunction and language dysfunction in the past. PAST SURGICAL HISTORY: None. ALLERGIES: PENICILLIN. HOME MEDICATIONS: - hydrochlorothiazide - pantoprazole - pravastatin - propranolol - Symbicort - Celexa - Zomig SOCIAL HISTORY: The patient denies use of tobacco, alcohol or illicit drugs. FAMILY HISTORY: Brother with complex migraines. REVIEW OF SYSTEMS: 14-point review of systems obtained and is negative except as per HPI. PHYSICAL EXAMINATION: Blood pressure is 105/60, pulse rate 96, respiratory rate is 16, temperature is 98.3 degrees Fahrenheit, oxygenation 98% on room air. The patient is awake, alert, oriented to person, place and time. Though she can state her first name but cannot state her last name. She demonstrates some dyslexia and some dyssomnia. Sometimes speech is fluent and clear. There is no dysarthria. Pupils are 3 mm round, reactive to light. Extraocular movements are intact in all directions. Sensation V1, V2-V3 is intact to light touch. No facial asymmetry activation. Palate elevates symmetrically. Tongue is midline. No weakness of sternocleidomastoids bilaterally. Hearing is subjectively equal to finger rub. No pronator drift. Strength is 5/5 including bilateral deltoids, biceps, triceps, handgrip, iliopsoas, quadriceps, anterior tibialis. Deep tendon reflexes are 2 throughout. Sensory is intact to light touch in all four extremities. Coordination without any gross ataxia, dysmetria. Gait deferred. ASSESSMENT: 68-year-old female with altered mental status secondary to complex migraine with history of migraine with aura with new symptoms of dyslexia, dyssomnia and expressive aphasia. The patient seems to be improving. There is no evidence of stroke. There is no evidence of central nervous system (PEER SUPPORT SPECIALIST) infection. There is no evidence of seizure activity clinically. Recommend starting IV Depacon 1 gram one time as well as magnesium sulfate 1 gram one time. The patient can be maintained on Depakote 250 mg by mouth twice a day for maintenance if migraines versus persists in an outpatient setting. The patient denies any hemiplegic migraines. Can continue Zomig and/or sumatriptan. Avoid more than two doses in 24 hours and four doses in 7 days. Continue propranolol at current dosages. The patient can followup in the [facility] 6-8 weeks after discharge.
[2018-10-19] MEDS: ACETAMINOPHEN 500 MG TAB PO PRN (08:46)
[2018-10-19] MEDS: PROPRANOLOL 20 MG TAB PO SCH ×3 (08:47→20:32)
[2018-10-19] MEDS: PANTOPRAZOLE 40MG TAB (PROTONIX) PO SCH (08:47)
[2018-10-19] MEDS: ASPIRIN 81 MG CHEW TABLET PO SCH (08:47)
[2018-10-19] MEDS ORDERED: DEPA250T32 PO (08:58)
[2018-10-19] MEDS ORDERED: ZOLMitriptan TABLET 2.5MG PO PRN (09:00)
[2018-10-19] MEDS: CitaloPRAM (CeleXA) 20 MG TAB PO SCH (10:18)
[2018-10-19] MEDS: DIVALPROEX 250 MG TAB PO SCH ×2 (10:18→20:32)
[2018-10-19] MEDS ORDERED: SUMAtriptan SUCCINATE 25 MG TAB PO ONE (17:15)
[2018-10-19] MEDS: PRAVASTATIN 20 MG TAB PO SCH (20:32)
--- NOTE | 2018-10-19 22:34 | IPN ---
DATE: 10/19/2018 Kamila is doing great. Her headache has markedly improved. She still has a slight right retroorbital migraine. Her speech has completely improved back to baseline. Her vision is back to normal. She has no aphasia. No nausea, vomiting or diarrhea. No abdominal pain. She is being discharged tomorrow. On physical exam, temperature is 98.2, pulse 73, respirations 18, blood pressure 124/74, oxygen saturation (O2 sat) 95% on room air. Heart: Normal S1, S2. No murmurs, rubs or gallops. Lungs are clear. No wheezes, rales or rhonchi. Abdomen: Soft, nontender. Extremities: No edema. Motor strength is normal. Speech is normal. Cranial nerves intact. IMPRESSION: Complex migraine with aura and expressive aphasia. Patient doing much better, back to baseline. She has a mild residual headache. Will give her another dose of Imitrex today. The patient has been started on Depakote 250 mg twice a day by neurology. She is also on propranolol 20 mg by mouth three times a day for migraine prevention. Brain MRI done on 10/18/2018 showed mild luminal irregularity in the right intracranial carotid artery consistent with mild atherosclerosis and in the left intracranial artery as well. Otherwise no aneurysm, stenosis. No infarcts. PLAN: Discharge the patient home. Imitrex 50 mg by mouth one-time dose was given again today. Infectious disease signing off.
[2018-10-20] MEDS: HEPARIN SOD (PORCINE) 5000 UNITS/ML VIAL SC SCH (05:35)
[2018-10-20 05:59] VITALS: BP 144/89
[2018-10-20 06:40] LABS: HEMATOCRIT 32.9 % (36.0-47.0); HEMOGLOBIN 10.6 g/dl (12.0-15.5); MEAN CORPUSCULAR HEMOGLOBIN 29.6 pg (27.0-33.0); MEAN CORPUSCULAR HGB CONC 32.2 g/dl (32.0-36.5); MEAN CORPUSCULAR VOLUME 91.9 fl (80.0-96.0); PLATELET COUNT, AUTOMATED 298 10^3/uL (150-450); RED BLOOD COUNT 3.58 10^6/uL (4.00-5.40); WHITE BLOOD COUNT 8.9 10^3/uL (4.0-10.0)
[2018-10-20 07:08] LABS: BLOOD UREA NITROGEN 12 MG/DL (7-18); CARBON DIOXIDE LEVEL 27 MEQ/L (21-32); CHLORIDE LEVEL 112 MEQ/L (98-107); GLOMERULAR FILTRATION RATE > 60.0 (>45); GLUCOSE, FASTING 92 MG/DL (70-100); POTASSIUM SERUM 3.9 MEQ/L (3.5-5.1); SODIUM LEVEL 144 MEQ/L (136-145)
[2018-10-20 08:11] VITALS: BP 144/89
[2018-10-20] MEDS: DIVALPROEX 250 MG TAB PO SCH (08:11)
[2018-10-20] MEDS: PANTOPRAZOLE 40MG TAB (PROTONIX) PO SCH (08:11)
[2018-10-20] MEDS: PROPRANOLOL 20 MG TAB PO SCH (08:11)
[2018-10-20] MEDS: ASPIRIN 81 MG CHEW TABLET PO SCH (08:11)
[2018-10-20] MEDS: CitaloPRAM (CeleXA) 20 MG TAB PO SCH (08:12)
--- NOTE | 2018-10-20 08:52 | IPNPDOC ---
Date Seen The patient was seen on 10/19/18. Progress Note SUBJECTIVE: "I can speak again." c/o headache. MRI brain: mild atherosclerotic disease. no fever or chills overnight. no cough or sob. Per neurology, may dc home with outpt fu. PHYSICAL EXAM: VITALS: PLS SEE BELOW GENERAL: She is well nourished, in no apparent distress. Head is normocephalic atraumatic. Eyes, pupils equal, round and reactive to light. Neck supple with no jugular venous pulse. Lungs clear to auscultation on the anterior chest. Cardiovascular regular and rhythm. Normal S1, S2. No murmurs, gallops or rubs. Abdomen soft and positive bowel sounds. Extremities no edema. Neurological, she is alert. She has no focal deficits. Moves all four extremities. Sensation is intact. speech is fluent. no pronator drift 5/5 x 4 extremities. no dysmetria on finger to nose testing. LABORATORY DATA MICROBIOLOGY: PLS SEE BELOW LABS AND IMAGING DONE IN THE ER: White count 14, hemoglobin and hematocrit 12 and 36, platelets 375, blood gas 7.5, 28 79 22 96, Chemistry shows a BUN and creatinine of 17 over 0.8, Lactate 2.6, ammonia unremarkable, liver function test unremarkable. TSH within normal limits. CRP is pending. CT head no acute intracranial abnormality. X-ray of the chest no acute pathology. UA is unremarkable. U-tox is unremarkable. Tylenol and blood alcohol levels unremarkable. CSF first model shows 23 WBC predominately poly, 5 red blood cell. Model #4 shows 7 WBC's, less than 2 red blood cells. She has some glucose still pending. CULTURES: Pending. Gram stain is pending. ASSESSMENT AND PLAN:The patient is a 68-year-old female with significant past medical history of depression, anxiety, GERD, hypertension, asthma, COPD. She presented to the emergency room after her called 911. Throughout the course of the day yesterday the patient complained of a headache which progressively worsened and subsequently became altered towards the end of the day. The patient does not offer any history. She appears to have a brokers aphasia. The words she states is nonsensical even writing she is unable to write appropriately. states that she had no acute complaints but the history is limited just because of the patient's inability to have a cohesive conservation. complicated migraine per Neurology," migraine with aura with new symptoms of dyslexia, dyssomnia and expressive aphasia. The patient seems to be improving. There is no evidence of stroke. There is no evidence of central nervous system (REGISTERED NURSE TEACHER) infection. There is no evidence of seizure activity clinically.Recommend starting IV Depacon 1 gram one time as well as magnesium sulfate 1 gram one time. The patient can be maintained on Depakote 250 mg by mouth twice a day for maintenance if migraines versus persists in an outpatient setting. The patient denies any hemiplegic migraines. Can continue Zomig and/or sumatriptan. Avoid more than two doses in 24 hours and four doses in 7 days. Continue propranolol at current dosages. The patient can followup in the [facility] 6-8 weeks after discharge." Hypertension. Continue hydrochlorothiazide. Hyperlipidemia. Continue Pravastatin. GERD. Continue Pantoprazole, propranolol. COPD/asthma. Continue DuoNebs. Supportive DVT prophylaxis. Heparin subcu. GI prophylaxis. The patient is already on PPI. VS, I&O, 24H, Fishbone Vital Signs/I&O Vital Signs Date Time Temp Pulse Resp B/P (MAP) Pulse Ox O2 Delivery O2 Flow Rate FiO2 10/19/18 08:00 97.8 81 20 129/66 (87) 100 3.0 10/18/18 01:31 Room Air I&O- Last 24 Hours up to 6 AM 10/19/18 05:59 Intake Total 4160 ml Output Total 3075 ml Balance 1085 ml Laboratory Data 24H LABS Laboratory Tests 2 10/19/18 05:30: Nucleated Red Blood Cells % (auto) 0.0, Anion Gap 6L, Glomerular Filtration Rate > 60.0, Blood Urea Nitrogen 11, Creatinine 0.63, Sodium Level 145, Potassium Level 3.5, Chloride Level 113H, Carbon Dioxide Level 26, Calcium Level 8.2L CBC/BMP Laboratory Tests 10/19/18 05:30 Red Blood Count 3.44 L, Mean Corpuscular Volume 91.0, Mean Corpuscular Hemoglobin 29.9, Mean Corpuscular Hemoglobin Concent 32.9, Red Cell Distribution Width 13.1, Calcium Level 8.2 L Microbiology Microbiology 10/18/18 Blood Culture - Preliminary, Resulted 10/18/18 Gram Stain - Final, Resulted 10/18/18 CSF Culture, Resulted Pending 10/18/18 - Final, Resulted 10/18/18 Urine Culture, Received Pending CARINE CHAN MD Oct 19, 2018 08:52
--- NOTE | 2018-10-20 08:56 | DS.PDOC ---
Discharge Summary General Date of Admission Oct 18, 2018 at 03:33 Date of Discharge October 20, 2018 Discharge Summary DISCHARGE DIAGNOSES: Acute Complicated Migraine with Aura Expressive Aphasia Dyslexia Obesity BMI 35.5 DISCHARGE MEDICATIONS: PLS SEE BELOW CONSULTANTS: DR. JEAN, NEUROLOGY DR. HOPE, INFECTIOUS DISEASE PROCEDURES: LUMBAR PUNCTURE HISTORY OF PRESENTING ILLNESS: The patient is a 68-year-old female with significant past medical history of depression, anxiety, GERD, hypertension, asthma, COPD. She presented to the emergency room after her called 911. Throughout the course of the day yesterday the patient complained of a headache which progressively worsened and subsequently became altered towards the end of the day. The patient does not offer any history. She appears to have a brokers aphasia. The words she states is nonsensical even writing she is unable to write appropriately. states that she had no acute complaints but the history is limited just because of the patient's inability to have a cohesive conservation. HOSPITAL COURSE: complicated migraine per Neurology," migraine with aura with new symptoms of dyslexia, dyssomnia and expressive aphasia. The patient seems to be improving. There is no evidence of stroke. There is no evidence of central nervous system ([employer]IST[employer]) infection. There is no evidence of seizure activity clinically.Recommend starting IV Depacon 1 gram one time as well as magnesium sulfate 1 gram one time. The patient can be maintained on Depakote 250 mg by mouth twice a day for maintenance if migraines versus persists in an outpatient setting. The patient denies any hemiplegic migraines. Can continue Zomig and/or sumatriptan. Avoid more than two doses in 24 hours and four doses in 7 days. Continue propranolol at current dosages. The patient can followup in the [facility] 6-8 weeks after discharge." Expressive Aphasia / Dyslexia with low grade fever s/p lumbar puncture and iv abx for empiric coverage for meningitis due to ams and low grade fever. ID consulted. abx discontinued ams due to complicated migraine with aura. no meningeal signs Hypertension. Continue hydrochlorothiazide. Hyperlipidemia. Continue Pravastatin. GERD. Continue Pantoprazole, propranolol. COPD/asthma. Continue DuoNebs. Supportive DVT prophylaxis. Heparin subcu. GI prophylaxis. The patient is already on PPI. DISCHARGE PHYSICAL EXAM: VITALS: PLS SEE BELOW GENERAL: She is well nourished, in no apparent distress. Head is normocephalic atraumatic. Eyes, pupils equal, round and reactive to light. Neck supple with no jugular venous pulse. Lungs clear to auscultation on the anterior chest. Cardiovascular regular and rhythm. Normal S1, S2. No murmurs, gallops or rubs. Abdomen soft and positive bowel sounds. Extremities no edema. Neurological, she is alert. She has no focal deficits. Moves all four extremities. Sensation is intact. speech is fluent. no pronator drift 5/5 x 4 extremities. no dysmetria on finger to nose testing. DISCHARGE LABORATORY DATA, IMAGING STUDIES, MICROBIOLOGY: PLS SEE BELOW LABS AND IMAGING DONE IN THE ER: White count 14, hemoglobin and hematocrit 12 and 36, platelets 375, blood gas 7.5, 28 79 22 96, Chemistry shows a BUN and creatinine of 17 over 0.8, Lactate 2.6, ammonia unremarkable, liver function test unremarkable. TSH within normal limits. CRP is pending. CT head no acute intracranial abnormality. X-ray of the chest no acute pathology. UA is unremarkable. U-tox is unremarkable. Tylenol and blood alcohol levels unremarkable. CSF first model shows 23 WBC predominately poly, 5 red blood cell. Model #4 shows 7 WBC's, less than 2 red blood cells. She has some glucose still pending. TIME SPENT ON DISCHARGE: 30 MIN Vital Signs/I&Os Vital Signs Date Time Temp Pulse Resp B/P (MAP) Pulse Ox O2 Delivery O2 Flow Rate FiO2 10/20/18 08:11 72 144/89 10/20/18 05:59 98.0 16 96 10/19/18 08:00 0.0 10/18/18 01:31 Room Air I&O- Last 24 Hours up to 6 AM 10/20/18 06:00 Intake Total 1680 ml Output Total 200 ml Balance 1480 ml Laboratory Data Labs 24H Laboratory Tests 2 10/20/18 06:28: Nucleated Red Blood Cells % (auto) 0.0, Anion Gap 5L, Glomerular Filtration Rate > 60.0, Blood Urea Nitrogen 12, Creatinine 0.70, Sodium Level 144, Potassium Level 3.9, Chloride Level 112H, Carbon Dioxide Level 27, Calcium Level 8.0L CBC/BMP Laboratory Tests 10/20/18 06:28 Red Blood Count 3.58 L, Mean Corpuscular Volume 91.9, Mean Corpuscular Hemoglobin 29.6, Mean Corpuscular Hemoglobin Concent 32.2, Red Cell Distribution Width 13.2, Calcium Level 8.0 L Microbiology Microbiology 10/18/18 Blood Culture - Preliminary, Resulted 10/18/18 Gram Stain - Final, Complete 10/18/18 CSF Culture - Final, Complete 10/18/18 - Final, Complete 10/18/18 Urine Culture - Final, Complete Discharge Medications Scheduled Citalopram Hydrobromide (Celexa) 20 Mg Tab, 20 MG PO DAILY, (Reported) Divalproex Sodium (Depakote) 250 Mg Tab, 250 MG PO BID Hydrochlorothiazide (Hydrochlorothiazide) 12.5 Mg Cap, 12.5 MG PO DAILY, (Reported) Pantoprazole Sodium (Pantoprazole Sodium) 40 Mg Tab, 40 MG PO DAILY, (Reported) Pravastatin Sodium (Pravastatin Sodium) 20 Mg Tab, 40 MG PO QHS, (Reported) Propranolol HCl (Propranolol HCl) 20 Mg Tab, 20 MG PO TID, (Reported) Scheduled PRN Budesonide/Formoterol (Symbicort 80-4.5 Mcg/Act) 60 Puff/Inhaler Aers, 1 PUFF INH BID PRN for SOB/WHEEZING, (Reported) Zolmitriptan (Zomig) 5 Mg Tab, 5 MG PRN PRN for MIGRAINE, (Reported) Miscellaneous Medications [Patient Comments] , (Reported) UNABLE TO DETERMINE IF PATIENT TOOK ANY MEDICATIONS TODAY OR WHEN THEY WERE LAST TAKEN. PERSON WITH HER HAD MEDICATION BOTTLES AND SAID SHE USUALLY TAKES HER MEDICATIONS PRESCRIBED Allergies Coded Allergies: Penicillins (Verified Allergy, Unknown, 10/18/18) ether (Verified Allergy, Unknown, 10/18/18) CARINE CHAN MD Oct 20, 2018 08:56
== END 2018-10-20 10:03 | disposition home or self-care (01) | DRG 102 ==
LOC: M ED 01:20 → EDBD 01:20 → M ED INP 03:33 → M ICU 05:28 → M PCU 10-19 00:33 → M MS4PR 10-19 11:57
PROVIDERS: ADMIT Internal Medicine; ATTEND General Practice
DX: G43.109 Migraine with aura, not intractable, without status migrainosus (principal); G93.41 Metabolic encephalopathy; R47.01 Aphasia; R48.0 Dyslexia and alexia; E66.9 Obesity, unspecified; Z68.35 Body mass index [BMI] 35.0-35.9, adult; F32.9 Major depressive disorder, single episode, unspecified; F41.9 Anxiety disorder, unspecified; K21.9 Gastro-esophageal reflux disease without esophagitis; I10 Essential (primary) hypertension; J45.909 Unspecified asthma, uncomplicated; Z79.899 Other long term (current) drug therapy; Z88.0 Allergy status to penicillin; Z88.8 Allergy status to other drugs, medicaments and biological substances; E78.5 Hyperlipidemia, unspecified

== ENCOUNTER → 2019-06-22 | Outpatient (CLI) | payer MEDICARE ==
[~2019-06-22] MED LIST changes: +DEPA250T32 PO; +PANT40TA3 PO; +PATIENT COMMENTS; +SYMB80INH INH
--- NOTE | 2019-06-22 10:46 | REP ---
Clinical: Follow up abnormal lung findings. Technique: Axial noncontrast images from the thoracic inlet to the upper abdomen with coronal and sagittal re-formations. Comparison: 06/29/2018. Findings: Small scattered pulmonary nodules measuring up to 3 mm remains stable and consistent with benign chronic granulomatous changes. No acute consolidation, significant nodule or mass lesion. No effusion. No pneumothorax. Tracheobronchial tree is patent. No adenopathy. Thoracic aorta and heart/pericardium are within normal limits. Musculoskeletal structures are intact and stable. Limited upper abdomen demonstrates normal bilateral adrenal glands. Impression: 1. Few small scattered noncalcified pulmonary nodules up to 3 mm remains stable and likely represent chronic granulomatous changes. 2. No acute mediastinal or pleuroparenchymal process. Electronically Signed by Broderick Farnsworth MD 06/22/2019 10:37 A
== END ==
LOC: M RAD 10:08
PROVIDERS: ATTEND Physician Assistant
DX: R91.8 Other nonspecific abnormal finding of lung field (principal)

== ENCOUNTER → 2020-07-18 | Outpatient (REF) | payer MEDICARE ==
[~2020-07-18] MED LIST changes: +CYCL-707 PO; -CYCL10TA PO; +PANT40TA29 PO; -PANT40TA3 PO
== END ==
LOC: M LAB REF 16:22
PROVIDERS: ATTEND Nurse Practitioner Adult Health
DX: M25.50 Pain in unspecified joint (principal)

== ENCOUNTER → 2020-10-31 | Outpatient (CLI) | payer MEDICARE ==
--- NOTE | 2020-10-31 13:07 | REPMRS ---
Patient History The patient states she had a clinical breast exam in June 2020. Family history of breast cancer at age 87 in mother. Digital Woman Screen Mammo: October 31, 2020 - Exam #: [id number] Bilateral CC and MLO view(s) were taken. Technologist: RT Romi Prior study comparison: July 28, 2018, bilateral digital woman screen mammo performed at [facility]. June 03, 2017, digital woman screen mammo performed at [facility]. June 17, 2016, digital woman screen mammo performed at [facility]. FINDINGS: The breast tissue is almost entirely fat. The Volpara volumetric breast density category is: A. There has been no change in the appearance of the mammogram from the prior studies. There is no interval development of dominant mass, architectural distortion, or grouped microcalcification typical of malignancy. 3-D tomosynthesis shows no additional findings. Assessment: BI-RADS/ACR category 1 mammogram. Negative Mammogram. Recommendation Routine screening mammogram of both breasts in 1 year (for women over age 40). This patient's [facility] Lifetime Breast Cancer RIsk is estimated at 14.5 %. This mammogram was interpreted with the aid of an FDA-approved computer-aided dectection system. Electronically Signed By: Av Vasquez MD 10/31/20 [id number]
== END ==
LOC: M WHC 10:57
PROVIDERS: ATTEND Nurse Practitioner Adult Health
DX: Z12.31 Encounter for screening mammogram for malignant neoplasm of breast (principal)

== ENCOUNTER → 2021-09-11 | Outpatient (CLI) | payer MEDICARE | LOC: M WUC 14:57 | PROVIDERS: ATTEND Physician Assistant | DX: S42.212A Unspecified displaced fracture of surgical neck of left humerus, initial encounter for closed fracture (principal); S40.022A Contusion of left upper arm, initial encounter; S50.02XA Contusion of left elbow, initial encounter; S60.212A Contusion of left wrist, initial encounter; X58.XXXA Exposure to other specified factors, initial encounter; Y92.9 Unspecified place or not applicable; Y93.9 Activity, unspecified; Y99.9 Unspecified external cause status ==

== ENCOUNTER → 2022-05-12 | Outpatient (CLI) | payer MEDICARE | LOC: M WHC 10:32 | PROVIDERS: ATTEND Nurse Practitioner Adult Health | DX: Z12.31 Encounter for screening mammogram for malignant neoplasm of breast (principal) ==

== ENCOUNTER → 2023-08-26 | Outpatient (CLI) | payer MEDICARE | LOC: M WHC 12:40 | PROVIDERS: ATTEND Physician Assistant Medical | DX: Z12.31 Encounter for screening mammogram for malignant neoplasm of breast (principal) ==

== ENCOUNTER → 2024-07-26 | Outpatient (CLI) | payer MEDICARE | LOC: M RAD 12:21 | PROVIDERS: ATTEND Physician Assistant Medical | DX: M19.90 Unspecified osteoarthritis, unspecified site (principal) ==

== ENCOUNTER → 2024-10-25 | Outpatient (CLI) | payer MEDICARE | LOC: M WHC 11:40 | PROVIDERS: ATTEND Physician Assistant Medical | DX: Z12.31 Encounter for screening mammogram for malignant neoplasm of breast (principal) ==